=== PATIENT | female | born 1975 | race African-American/Black ===

== ENCOUNTER 2021-06-02 05:04 | Inpatient (IN) | payer MEDICAID ==
[2021-06-01 19:00] VITALS: BP 177/98
[~2021-06-02] VITALS: Ht 152.4 cm; Wt 91.0 kg
[2021-06-02 06:27] LABS: CALCIUM 8.8 mg/dL (8.5-10.1); GFR 71.6
[2021-06-02] MEDS ORDERED: MORPHINE SULFATE 2 MG/ML INJ. IVP ONE (06:30)
[2021-06-02 06:31] LABS: BACTERIA,URINE 0 /HPF (0-FEW); RBC,URINE TNTC /HPF (0-2); WBC,URINE FIELD OBSCURED /HPF (0-4)
[2021-06-02 06:33] LABS: ALBUMIN 3.6 g/dL (3.4-5.0); ALBUMIN/GLOBULIN RATIO 0.9 (1.0-1.7); TOTAL BILIRUBIN 0.3 mg/dL (0.2-1.0); TOTAL PROTEIN 7.5 g/dL (6.4-8.2)
--- NOTE | 2021-06-02 06:34 | PHYS DOC ---
Past Medical History Past Surgical History: Additional Past Surgical Histo: hernia repair Smoking Status: Never Smoker Alcohol Use: None General Adult EDM: Chief Complaint: BLOOD IN URINE HPI: HPI: Patient is a 46 year old female presents to the ER with hematuria and left- sided flank pain. Suprapubic pain that started approximately 2 days ago. Patient is visiting family from [place]. Patient states that she was seen in the ER yesterday and was sent to this ER stating that they did not equipment to evaluate her yesterday. Patient states that the bleeding initially started spotting but currently has full bright red blood. Patient has not had symptoms like this previously. Denies any fevers or chills. Denies any nausea or vomiting. Review of Systems: Review of Systems: Constitutional: Denies fever or chills. [] Eyes: Denies change in visual acuity. [] HENT: Denies nasal congestion or sore throat. [] Respiratory: Denies cough or shortness of breath. [] Cardiovascular: Denies chest pain or edema. [] GI: Denies abdominal pain, nausea, vomiting, bloody stools or diarrhea. [] : Flank pain dysuria hematuria Musculoskeletal: Denies back pain or joint pain. [] Integument: Denies rash. [] Neurologic: Denies headache, focal weakness or sensory changes. [] Endocrine: Denies polyuria or polydipsia. [] Lymphatic: Denies swollen glands. [] Psychiatric: Denies depression or anxiety. [] Heart Score: C/O Chest Pain: No Risk Factors: Risk Factors: DM, Current or recent (<one month) smoker, HTN, HLP, family history of CAD, obesity. Risk Scores: Score 0 - 3: 2.5% MACE over next 6 weeks - Discharge Home Score 4 - 6: 20.3% MACE over next 6 weeks - Admit for Clinical Observation Score 7 - 10: 72.7% MACE over next 6 weeks - Early Invasive Strategies Current Medications: Current Medications Medications (Trade) Dose Ordered Sig/Aimee Start Time Stop Time Status Last Admin Dose Admin Morphine Sulfate (Morphine Sulfate) 2 mg 1X ONCE 06/02/21 06:30 06/02/21 06:31 DC 06/02/21 06:26 2 MG Allergies: Allergies: Allergies Coded Allergies Type Severity Reaction Last Updated Verified azithromycin Allergy Intermediate 06/02/21 Yes ketorolac Allergy Intermediate 06/02/21 Yes Physical Exam: PE: Constitutional: Appears uncomfortable well developed, well nourished, no acute distress, non-toxic appearance. [] HENT: Normocephalic, atraumatic, bilateral external ears normal, oropharynx m oist, no oral exudates, nose normal. [] Eyes: PERRLA, EOMI, conjunctiva normal, no discharge. [] Neck: Normal range of motion, no tenderness, supple, no stridor. [] Cardiovascular:Heart rate regular rhythm, no murmur [] Lungs & Thorax: Bilateral breath sounds clear to auscultation [] Abdomen: Bowel sounds normal, soft, no tenderness, no masses, no pulsatile masses. [] Skin: Warm, dry, no erythema, no rash. [] Back: No tenderness, left-sided CVA tenderness. [] Extremities: No tenderness, no cyanosis, no clubbing, ROM intact, no edema. [] Neurologic: Alert and oriented X 3, normal motor function, normal sensory function, no focal deficits noted. [] Psychologic: Affect normal, judgement normal, mood normal. [] Current Patient Data: Labs: Laboratory Tests Test 06/02/21 05:53 Urine Collection Type Unknown Urine Color (Auto) Red Urine Turbidity Bloody Urine pH (Auto) (<5.0-8.0) Urine Specific [place] (1.000-1.030) Urine Protein (Auto) mg/dL (Negative) Urine Glucose (Auto)(UA) mg/dL (Negative) Urine Ketones (Auto) mg/dL (Negative) Urine Blood (Auto) (Negative) Urine Nitrite (Negative) Urine Bilirubin (Auto) (Negative) Urine Urobilinogen (Auto) mg/dL (Normal) Urine Leukocyte Esterase (Auto) (Negative) Urine RBC Tntc /HPF (0-2) Urine WBC Field obscured /HPF (0-4) Urine Squamous Epithelial Cells Few /LPF Urine Bacteria 0 /HPF (0-FEW) Vital Signs: Vital Signs Date Time Temp Pulse Resp B/P (MAP) Pulse Ox O2 Delivery O2 Flow Rate FiO2 06/02/21 06:26 18 06/02/21 05:36 98.6 77 150/103 (119) 100 Room Air 98.6 EKG: EKG: [] Radiology/Procedures: Radiology/Procedures: []IMPRESSION: 1. No renal tract calculus. No hydronephrosis or hydroureter. 2. Trace free pelvic fluid is likely physiologic. 3. 3 mm right lower lobe lung nodules. Per Fleischner Society guidelines for incidentally found solid nodules measuring less than 6 mm, no follow-up is nece ssary if patient is considered at low risk for lung cancer. If patient is considered to be at high risk, such as with history of smoking, then CT follow- up in about 12 months can be considered. Course & Med Decision Making: Course & Med Decision Making Pertinent Labs and Imaging studies reviewed. (See chart for details) [] Discussed case with hospitalist. Patient accepted patient will be seen by urology and have a CBI Dragon Disclaimer: Sophia Disclaimer: This electronic medical record was generated, in whole or in part, using a voice recognition dictation system. Departure Departure Referrals: UNKNOWN PCP NAME (PCP) JEAN KUMAR DO Jun 02, 2021 06:34
--- NOTE | 2021-06-02 06:41 | RAD ---
EXAM: CT Abdomen and Pelvis without IV contrast CLINICAL HISTORY: left flank pain COMPARISON: none TECHNIQUE: Helical CT of the abdomen and pelvis without intravenous contrast. Axial, coronal and sagi ttal reformatted images were generated. PQRS compliance statement - One or more of the following individualized dose reduction techniques wer e utilized for this study: 1. Automated exposure control 2. Adjustment of the mA and/or kV according to patient size 3. Use of iterative reconstruction technique FINDINGS: Lack of intravenous contrast limits evaluation of solid organs, vasculature, and lymph nodes. Lower chest: Nodular opacities right lower lobe measures 3-4 mm. Abdomen and Pelvis: Cholecystectomy clips are seen. No biliary duct dilatation. Pancreas, spleen, adrenal glands are unre markable. Liver is unremarkable. No focal renal lesion. No hydronephrosis. No hydroureter. Bladder is grossly unremarkable. Moderate colonic stool content is seen. No small or large bowel dilatation. No bowel obstruction. Tracy endix is normal. Trace pelvic ascites. No abdominal or pelvic lymphadenopathy. Bones: No aggressive osseous lesion is seen. IMPRESSION: 1. No renal tract calculus. No hydronephrosis or hydroureter. 2. Trace free pelvic fluid is likely physiologic. 3. 3 mm right lower lobe lung nodules. Per Fleischner Society guidelines for incidentally found nohemi d nodules measuring less than 6 mm, no follow-up is necessary if patient is considered at low risk fo r lung cancer. If patient is considered to be at high risk, such as with history of smoking, then CT follow-up in about 12 months can be considered. Electronically signed by: Ata Godwin MD (06/02/2021 6:39 AM) J[facility]GE
[2021-06-02 06:44] LABS: BASO # 0.1 x10^3/uL (0.0-0.2); BASO % 1 % (0-3); EOS # 0.2 x10^3/uL (0.0-0.7); EOS % 3 % (0-3); HEMATOCRIT 35.9 % (36.0-47.0); HEMOGLOBIN 11.7 g/dL (12.0-15.5); LYMPH # 2.9 x10^3/uL (1.0-4.8); LYMPH % 40 % (24-48); MEAN CORPUSCULAR HEMOGLOBIN 26 pg (25-35); MEAN CORPUSCULAR HGB CONC 33 g/dL (31-37); MEAN CORPUSCULAR VOLUME 79 fL (79-100); MONO # 0.7 x10^3/uL (0.0-1.1); MONO % 9 % (0-9); NEUT # 3.4 x10^3/uL (1.8-7.7); NEUT % 47 % (31-73); PLATELET COUNT 368 x10^3/uL (140-400); RED BLOOD COUNT 4.54 x10^6/uL (3.50-5.40); WHITE BLOOD COUNT 7.2 x10^3/uL (4.0-11.0)
[2021-06-02] MEDS ORDERED: cefTRIAXone IV Push 1 GM VIAL. IVP ONE (08:30)
[2021-06-02] MEDS ORDERED: IV NORMAL SALINE 1000ML BAG 1,000 ML IV ONE (08:30)
--- NOTE | 2021-06-02 10:47 | PDOC2 ---
UROLOGY CONSULT Date of Service DATE: 06/02/21 TIME: 10:45 Reason for Consult Reason for Consult: hematuria Identification/Chief Complaint Chief Complaint blood in urine History of Present Illness Reason for Visit: 46yo female presented to ER for gross hematuria. Began two nights ago. Associated with dysuria, urgency, frequency. Also endorses lower abdominal and lower back pain with same timing onset. Has not seen any clots. CT a/p was unremarkable. UA difficult to interpret due to amount of blood. No hx kidney stones, recurrent UTIs, anticoagulation, or trauma. Denies fevers, difficulty voiding, chest pain, shortness of breath. No prior history of gross hematuria. Pt is from [place], visiting family here, and planning to return on 06/05. Past Medical History Cardiovascular: No pertinent hx Pulmonary: No pertinent hx Renal/: No pertinent hx Past Surgical History Past Surgical History: Family History Family History: No Significant Social History Quit (previous smoker) Current Medications Current Medications Current Medications Ceftriaxone Sodium (Rocephin) 1 gm 1X ONCE IVP Last administered on 06/02/21at 08:39; Start 06/02/21 at 08:30; Stop 06/02/21 at 08:31; Status DC Lorazepam (Ativan Inj) 1 mg 1X ONCE IVP Last administered on 06/02/21at 08:39; Start 06/02/21 at 08:30; Stop 06/02/21 at 08:31; Status DC Morphine Sulfate (Morphine Sulfate) 2 mg 1X ONCE IVP Last administered on 06/02/21at 06:26; Start 06/02/21 at 06:30; Stop 06/02/21 at 06:31; Status DC Sodium Chloride 1,000 ml @ 1,000 mls/hr 1X ONCE IV Last administered on 06/02/21at 08:39; Start 06/02/21 at 08:30; Stop 06/02/21 at 09:29; Status DC Allergies Allergies: Coded Allergies: azithromycin (Verified Allergy, Intermediate, 06/02/21) ketorolac (Verified Allergy, Intermediate, 06/02/21) ROS Review Of Systems: CONSTITUTIONAL: No fever or chills EYES: No recent changes SKIN: No rash or itching CARDIOVASCULAR: No chest pain, syncope, palpitations, or edema RESPIRATORY: No SOB or cough GASTROINTESTINAL: No nausea, vomiting or abdominal pain NEUROLOGICAL: No headaches or weakness ENDOCRINE: No cold or heat intolerance GENITOURINARY: No urgency or frequency of urination MUSCULOSKELETAL: No back pain or joint pain LYMPHATICS: No enlarged lymph nodes PSYCHIATRIC: No anxiety or depression Physical Exam Physical Exam: General: Pleasant, no acute distress, well groomed Eyes: conjunctiva anicteric, eyes full range of motion ENT: moist oral mucosa, normal dentition Neck: Trachea midline, no masses Respiratory: unlabored breathing, not using accessory muscles, no crackles or wheezes Cardiovascular: Regular rate and rhythm, no peripheral edema Abdomen: lower abdomen tender, nondistended Skin: no rashes or skin lesions on visualized skin Psych: normal mood, affect. Alert and oriented x 3. Vitals VITALS Vital Signs Date Time Temp Pulse Resp B/P (MAP) Pulse Ox O2 Delivery O2 Flow Rate FiO2 06/02/21 07:04 66 15 163/94 (117) 97 Room Air 06/02/21 05:36 98.6 98.6 Labs Labs Laboratory Tests Test 06/02/21 05:53 White Blood Count 7.2 x10^3/uL (4.0-11.0) Red Blood Count 4.54 x10^6/uL (3.50-5.40) Hemoglobin 11.7 g/dL (12.0-15.5) Hematocrit 35.9 % (36.0-47.0) Mean Corpuscular Volume 79 fL (79-100) Mean Corpuscular Hemoglobin 26 pg (25-35) Mean Corpuscular Hemoglobin Concent 33 g/dL (31-37) Red Cell Distribution Width 17.0 % (11.5-14.5) Platelet Count 368 x10^3/uL (140-400) Neutrophils (%) (Auto) 47 % (31-73) Lymphocytes (%) (Auto) 40 % (24-48) Monocytes (%) (Auto) 9 % (0-9) Eosinophils (%) (Auto) 3 % (0-3) Basophils (%) (Auto) 1 % (0-3) Neutrophils # (Auto) 3.4 x10^3/uL (1.8-7.7) Lymphocytes # (Auto) 2.9 x10^3/uL (1.0-4.8) Monocytes # (Auto) 0.7 x10^3/uL (0.0-1.1) Eosinophils # (Auto) 0.2 x10^3/uL (0.0-0.7) Basophils # (Auto) 0.1 x10^3/uL (0.0-0.2) Urine Collection Type Unknown Urine Color (Auto) Red Urine Turbidity Bloody Urine pH (Auto) (<5.0-8.0) Urine Specific [place] (1.000-1.030) Urine Protein (Auto) mg/dL (Negative) Urine Glucose (Auto)(UA) mg/dL (Negative) Urine Ketones (Auto) mg/dL (Negative) Urine Blood (Auto) (Negative) Urine Nitrite (Negative) Urine Bilirubin (Auto) (Negative) Urine Urobilinogen (Auto) mg/dL (Normal) Urine Leukocyte Esterase (Auto) (Negative) Urine RBC Tntc /HPF (0-2) Urine WBC Field obscured /HPF (0-4) Urine Squamous Epithelial Cells Few /LPF Urine Bacteria 0 /HPF (0-FEW) Sodium Level 137 mmol/L (136-145) Potassium Level 4.0 mmol/L (3.5-5.1) Chloride Level 104 mmol/L (98-107) Carbon Dioxide Level 23 mmol/L (21-32) Anion Gap 10 (6-14) Blood Urea Nitrogen 15 mg/dL (7-20) Creatinine 1.0 mg/dL (0.6-1.0) Estimated GFR (Cockcroft-Gault) 71.6 BUN/Creatinine Ratio 15 (6-20) Glucose Level 100 mg/dL (70-99) Calcium Level 8.8 mg/dL (8.5-10.1) Total Bilirubin 0.3 mg/dL (0.2-1.0) Aspartate Amino Transf (AST/SGOT) 10 U/L (15-37) Alanine Aminotransferase (ALT/SGPT) 9 U/L (14-59) Alkaline Phosphatase 68 U/L (46-116) Total Protein 7.5 g/dL (6.4-8.2) Albumin 3.6 g/dL (3.4-5.0) Albumin/Globulin Ratio 0.9 (1.0-1.7) Laboratory Tests Test 06/02/21 05:53 White Blood Count 7.2 x10^3/uL (4.0-11.0) Red Blood Count 4.54 x10^6/uL (3.50-5.40) Hemoglobin 11.7 g/dL (12.0-15.5) Hematocrit 35.9 % (36.0-47.0) Mean Corpuscular Volume 79 fL (79-100) Mean Corpuscular Hemoglobin 26 pg (25-35) Mean Corpuscular Hemoglobin Concent 33 g/dL (31-37) Red Cell Distribution Width 17.0 % (11.5-14.5) Platelet Count 368 x10^3/uL (140-400) Neutrophils (%) (Auto) 47 % (31-73) Lymphocytes (%) (Auto) 40 % (24-48) Monocytes (%) (Auto) 9 % (0-9) Eosinophils (%) (Auto) 3 % (0-3) Basophils (%) (Auto) 1 % (0-3) Neutrophils # (Auto) 3.4 x10^3/uL (1.8-7.7) Lymphocytes # (Auto) 2.9 x10^3/uL (1.0-4.8) Monocytes # (Auto) 0.7 x10^3/uL (0.0-1.1) Eosinophils # (Auto) 0.2 x10^3/uL (0.0-0.7) Basophils # (Auto) 0.1 x10^3/uL (0.0-0.2) Urine Collection Type Unknown Urine Color (Auto) Red Urine Turbidity Bloody Urine pH (Auto) (<5.0-8.0) Urine Specific [place] (1.000-1.030) Urine Protein (Auto) mg/dL (Negative) Urine Glucose (Auto)(UA) mg/dL (Negative) Urine Ketones (Auto) mg/dL (Negative) Urine Blood (Auto) (Negative) Urine Nitrite (Negative) Urine Bilirubin (Auto) (Negative) Urine Urobilinogen (Auto) mg/dL (Normal) Urine Leukocyte Esterase (Auto) (Negative) Urine RBC Tntc /HPF (0-2) Urine WBC Field obscured /HPF (0-4) Urine Squamous Epithelial Cells Few /LPF Urine Bacteria 0 /HPF (0-FEW) Sodium Level 137 mmol/L (136-145) Potassium Level 4.0 mmol/L (3.5-5.1) Chloride Level 104 mmol/L (98-107) Carbon Dioxide Level 23 mmol/L (21-32) Anion Gap 10 (6-14) Blood Urea Nitrogen 15 mg/dL (7-20) Creatinine 1.0 mg/dL (0.6-1.0) Estimated GFR (Cockcroft-Gault) 71.6 BUN/Creatinine Ratio 15 (6-20) Glucose Level 100 mg/dL (70-99) Calcium Level 8.8 mg/dL (8.5-10.1) Total Bilirubin 0.3 mg/dL (0.2-1.0) Aspartate Amino Transf (AST/SGOT) 10 U/L (15-37) Alanine Aminotransferase (ALT/SGPT) 9 U/L (14-59) Alkaline Phosphatase 68 U/L (46-116) Total Protein 7.5 g/dL (6.4-8.2) Albumin 3.6 g/dL (3.4-5.0) Albumin/Globulin Ratio 0.9 (1.0-1.7) Images Images FINDINGS: Lack of intravenous contrast limits evaluation of solid organs, vasculature, and lymph nodes. Lower chest: Nodular opacities right lower lobe measures 3-4 mm. Abdomen and Pelvis: Cholecystectomy clips are seen. No biliary duct dilatation. Pancreas, spleen, adrenal glands are unremarkable. Liver is unremarkable. No focal renal lesion. No hydronephrosis. No hydroureter. Bladder is grossly unremarkable. Moderate colonic stool content is seen. No small or large bowel dilatation. No bowel obstruction. Appendix is normal. Trace pelvic ascites. No abdominal or pelvic lymphadenopathy. Bones: No aggressive osseous lesion is seen. IMPRESSION: 1. No renal tract calculus. No hydronephrosis or hydroureter. 2. Trace free pelvic fluid is likely physiologic. 3. 3 mm right lower lobe lung nodules. Per Fleischner Society guidelines for incidentally found solid nodules measuring less than 6 mm, no follow-up is necessary if patient is considered at low risk for lung cancer. If patient is considered to be at high risk, such as with history of smoking, then CT follow- up in about 12 months can be considered. Electronically signed by: Ata Godwin MD (06/02/2021 6:39 AM) [facility] Assessment/Plan Assessment/Plan Gross Hematuria PVR 19mL. No clots noted. UA obscured by blood. Most likely due to UTI. CT a/p unremarkable. Continue empiric abx, IVF. F/u urine culture. Also recommend pt f/u with urologist in [place] when she returns to have cystoscopy outpatient. She voiced understanding. Will follow. Anticipate pt able to d/c tomorrow. ALMA GARCIA Jun 02, 2021 10:47
[2021-06-02 11:00] VITALS: BP 147/88
[2021-06-02] MEDS: MORPHINE SULFATE 2 MG/ML INJ. IVP PRN ×2 (13:43→22:10)
[2021-06-02] MEDS ORDERED: MORPHINE SULFATE 2 MG/ML INJ. IVP PRN (14:15)
[2021-06-02] MEDS ORDERED: oxyCODONE/APAP 5/325 1 TAB TABLET PO PRN ×2 (14:15)
[2021-06-02] MEDS ORDERED: DEXTROSE 50% 25 GM / 50ML DISP.SYRIN. IV PRN (14:15)
[2021-06-02] MEDS ORDERED: MORPHINE SULFATE 2 MG/ML INJ. IV PRN (14:15)
[2021-06-02] MEDS ORDERED: diphenhydrAMINE 50 MG/ML VIAL IVP PRN (14:15)
[2021-06-02] MEDS ORDERED: DOCUSATE SODIUM 100 MG CAPSULE. PO PRN (14:15)
[2021-06-02] MEDS ORDERED: ONDANSETRON PF 4 MG/2 ML VIAL. IVP PRN (14:15)
[2021-06-02] MEDS ORDERED: SENNOSIDES 8.6 MG TABLET PO PRN (14:15)
[2021-06-02] MEDS ORDERED: ZOLPIDEM 5 MG TABLET. PO PRN (14:15)
[2021-06-02] MEDS ORDERED: diphenhydrAMINE HCL 25 MG CAPSULE PO PRN ×2 (14:15)
[2021-06-02] MEDS ORDERED: ACETAMINOPHEN 325 MG TABLET. PO PRN (14:15)
[2021-06-02] MEDS ORDERED: PROCHLORPERAZINE 10 MG/2 ML VIAL. IV PRN (14:15)
--- NOTE | 2021-06-02 14:15 | PDOC1 ---
History and Physical Date of Service: DOS: DATE: 06/02/21 TIME: 14:13 Chief Complaint: Chief Complain: Blood in the urine History of Present Illness: HPI: 46 year old female presents to the ER with hematuria and left-sided flank pain. Suprapubic pain that started approximately 2 days ago. Patient is visiting family from [place]. Patient states that she was seen in the ER yesterday and was sent to this ER stating that they did not equipment to evaluate her yesterday. Patient states that the bleeding initially started spotting but currently has full bright red blood. Patient has not had symptoms like this previously. Denies any fevers or chills. Denies any nausea or vomiting. Past Medical/Surgical History: PMH/PSH: Past Surgical History: Additional Past Surgical Histo: hernia repair Smoking Status: Never Smoker Alcohol Use: None Allergies: Allergies: Coded Allergies: azithromycin (Verified Allergy, Intermediate, 06/02/21) ketorolac (Verified Allergy, Intermediate, 06/02/21) Current Medications: Current Medications Current Medications Morphine Sulfate (Morphine Sulfate) 2 mg 1X ONCE IVP Last administered on 06/02/21at 06:26; Start 06/02/21 at 06:30; Stop 06/02/21 at 06:31; Status DC Lorazepam (Ativan Inj) 1 mg 1X ONCE IVP Last administered on 06/02/21at 08:39; Start 06/02/21 at 08:30; Stop 06/02/21 at 08:31; Status DC Ceftriaxone Sodium (Rocephin) 1 gm 1X ONCE IVP Last administered on 06/02/21at 08:39; Start 06/02/21 at 08:30; Stop 06/02/21 at 08:31; Status DC Sodium Chloride 1,000 ml @ 1,000 mls/hr 1X ONCE IV Last administered on 06/02/21at 08:39; Start 06/02/21 at 08:30; Stop 06/02/21 at 09:29; Status DC Morphine Sulfate (Morphine Sulfate) 2 mg PRN Q4HRS PRN IVP MODERATE TO SEVERE PAIN Last administered on 06/02/21at 13:43; Start 06/02/21 at 13:30 ROS: Review of Systems Review of System REVIEW OF SYSTEMS: GENERAL: Denies weakness SKIN: No bruising, hair changes or rashes. EYES: No blurred, double or loss of vision. NOSE AND THROAT: No history of nosebleeds, hoarseness or sore throat. HEART: No history of palpitations, chest pain or shortness of breath on exertion. LUNGS: Denies cough, hemoptysis, wheezing or shortness of breath. GASTROINTESTINAL: Denies changes in appetite, nausea, vomiting, diarrhea or constipation. GENITOURINARY: No history of frequency, urgency, hesitancy or nocturia. NEUROLOGIC: Denies history of numbness, tingling, or tremor. PSYCHIATRIC: No history of panic, anxiety or depression. ENDOCRINE: No history of heat or cold intolerance, polyuria or polydipsia. EXTREMITIES: Denies joint pain, pain on walking or stiffness. Physical Exam: Vital Signs: Vital Signs Date Time Temp Pulse Resp B/P (MAP) Pulse Ox O2 Delivery O2 Flow Rate FiO2 06/02/21 13:43 20 Room Air 06/02/21 11:00 97.3 78 147/88 (107) 97 97.3 Physcial Exam: GEN: No apparent distress. Alert and oriented HEENT: Normal cephalic, atraumatic, external auditory canals are patent EYES: Extraocular muscles are intact, pupil are equally round and reactive to light and accommodation MUSCULOSKELETAL: Well developed , well nourished, good range of motion ENDOCRINE: No thyromegaly was palpated LYMPHATICS: No cervical chain or axillary nodes were noted HEMATOPOIETIC: No bruising NECK: Supple, no JVD, no thyromegaly was noted LUNGS: Clear to auscultation in all lung griffith without rhonchi or wheezing HEART: RRR, S!, S2 present. Peripheral pulses intact, no obvious murmurs noted ABDOMEN: Soft, nontender. Positive bowel sounds, no organomegaly, normal bowel sounds EXTREMITIES: Without clubbing, cyanosis, or edema. Pedal pulses intact. Negative Homans sign NEUROLOGIC: Normal speech and tone. A&O x 3, moves all extremities, no obvious focal deficits PSYCHIATRIC: Normal affect, normal mood. Stable SKIN: No ulcerations or rashes, good skin turgor, no jaundice VASCULAR: Good capillary refill, neurovascular bundle appears to be intact Labs: Labs: Laboratory Tests Test 06/02/21 05:53 White Blood Count 7.2 x10^3/uL (4.0-11.0) Red Blood Count 4.54 x10^6/uL (3.50-5.40) Hemoglobin 11.7 g/dL (12.0-15.5) Hematocrit 35.9 % (36.0-47.0) Mean Corpuscular Volume 79 fL (79-100) Mean Corpuscular Hemoglobin 26 pg (25-35) Mean Corpuscular Hemoglobin Concent 33 g/dL (31-37) Red Cell Distribution Width 17.0 % (11.5-14.5) Platelet Count 368 x10^3/uL (140-400) Neutrophils (%) (Auto) 47 % (31-73) Lymphocytes (%) (Auto) 40 % (24-48) Monocytes (%) (Auto) 9 % (0-9) Eosinophils (%) (Auto) 3 % (0-3) Basophils (%) (Auto) 1 % (0-3) Neutrophils # (Auto) 3.4 x10^3/uL (1.8-7.7) Lymphocytes # (Auto) 2.9 x10^3/uL (1.0-4.8) Monocytes # (Auto) 0.7 x10^3/uL (0.0-1.1) Eosinophils # (Auto) 0.2 x10^3/uL (0.0-0.7) Basophils # (Auto) 0.1 x10^3/uL (0.0-0.2) Urine Collection Type Unknown Urine Color (Auto) Red Urine Turbidity Bloody Urine pH (Auto) (<5.0-8.0) Urine Specific [place] (1.000-1.030) Urine Protein (Auto) mg/dL (Negative) Urine Glucose (Auto)(UA) mg/dL (Negative) Urine Ketones (Auto) mg/dL (Negative) Urine Blood (Auto) (Negative) Urine Nitrite (Negative) Urine Bilirubin (Auto) (Negative) Urine Urobilinogen (Auto) mg/dL (Normal) Urine Leukocyte Esterase (Auto) (Negative) Urine RBC Tntc /HPF (0-2) Urine WBC Field obscured /HPF (0-4) Urine Squamous Epithelial Cells Few /LPF Urine Bacteria 0 /HPF (0-FEW) Sodium Level 137 mmol/L (136-145) Potassium Level 4.0 mmol/L (3.5-5.1) Chloride Level 104 mmol/L (98-107) Carbon Dioxide Level 23 mmol/L (21-32) Anion Gap 10 (6-14) Blood Urea Nitrogen 15 mg/dL (7-20) Creatinine 1.0 mg/dL (0.6-1.0) Estimated GFR (Cockcroft-Gault) 71.6 BUN/Creatinine Ratio 15 (6-20) Glucose Level 100 mg/dL (70-99) Calcium Level 8.8 mg/dL (8.5-10.1) Total Bilirubin 0.3 mg/dL (0.2-1.0) Aspartate Amino Transf (AST/SGOT) 10 U/L (15-37) Alanine Aminotransferase (ALT/SGPT) 9 U/L (14-59) Alkaline Phosphatase 68 U/L (46-116) Total Protein 7.5 g/dL (6.4-8.2) Albumin 3.6 g/dL (3.4-5.0) Albumin/Globulin Ratio 0.9 (1.0-1.7) Laboratory Tests Test 06/02/21 05:53 White Blood Count 7.2 x10^3/uL (4.0-11.0) Red Blood Count 4.54 x10^6/uL (3.50-5.40) Hemoglobin 11.7 g/dL (12.0-15.5) Hematocrit 35.9 % (36.0-47.0) Mean Corpuscular Volume 79 fL (79-100) Mean Corpuscular Hemoglobin 26 pg (25-35) Mean Corpuscular Hemoglobin Concent 33 g/dL (31-37) Red Cell Distribution Width 17.0 % (11.5-14.5) Platelet Count 368 x10^3/uL (140-400) Neutrophils (%) (Auto) 47 % (31-73) Lymphocytes (%) (Auto) 40 % (24-48) Monocytes (%) (Auto) 9 % (0-9) Eosinophils (%) (Auto) 3 % (0-3) Basophils (%) (Auto) 1 % (0-3) Neutrophils # (Auto) 3.4 x10^3/uL (1.8-7.7) Lymphocytes # (Auto) 2.9 x10^3/uL (1.0-4.8) Monocytes # (Auto) 0.7 x10^3/uL (0.0-1.1) Eosinophils # (Auto) 0.2 x10^3/uL (0.0-0.7) Basophils # (Auto) 0.1 x10^3/uL (0.0-0.2) Urine Collection Type Unknown Urine Color (Auto) Red Urine Turbidity Bloody Urine pH (Auto) (<5.0-8.0) Urine Specific [place] (1.000-1.030) Urine Protein (Auto) mg/dL (Negative) Urine Glucose (Auto)(UA) mg/dL (Negative) Urine Ketones (Auto) mg/dL (Negative) Urine Blood (Auto) (Negative) Urine Nitrite (Negative) Urine Bilirubin (Auto) (Negative) Urine Urobilinogen (Auto) mg/dL (Normal) Urine Leukocyte Esterase (Auto) (Negative) Urine RBC Tntc /HPF (0-2) Urine WBC Field obscured /HPF (0-4) Urine Squamous Epithelial Cells Few /LPF Urine Bacteria 0 /HPF (0-FEW) Sodium Level 137 mmol/L (136-145) Potassium Level 4.0 mmol/L (3.5-5.1) Chloride Level 104 mmol/L (98-107) Carbon Dioxide Level 23 mmol/L (21-32) Anion Gap 10 (6-14) Blood Urea Nitrogen 15 mg/dL (7-20) Creatinine 1.0 mg/dL (0.6-1.0) Estimated GFR (Cockcroft-Gault) 71.6 BUN/Creatinine Ratio 15 (6-20) Glucose Level 100 mg/dL (70-99) Calcium Level 8.8 mg/dL (8.5-10.1) Total Bilirubin 0.3 mg/dL (0.2-1.0) Aspartate Amino Transf (AST/SGOT) 10 U/L (15-37) Alanine Aminotransferase (ALT/SGPT) 9 U/L (14-59) Alkaline Phosphatase 68 U/L (46-116) Total Protein 7.5 g/dL (6.4-8.2) Albumin 3.6 g/dL (3.4-5.0) Albumin/Globulin Ratio 0.9 (1.0-1.7) Images: Images PROCEDURE: CT ABDOMEN PELVIS WO CONTRAST EXAM: CT Abdomen and Pelvis without IV contrast CLINICAL HISTORY: left flank pain COMPARISON: none TECHNIQUE: Helical CT of the abdomen and pelvis without intravenous contrast. Axial, coronal and sagittal reformatted images were generated. PQRS compliance statement - One or more of the following individualized dose reduction techniques were utilized for this study: 1. Automated exposure control 2. Adjustment of the mA and/or kV according to patient size 3. Use of iterative reconstruction technique FINDINGS: Lack of intravenous contrast limits evaluation of solid organs, vasculature, and lymph nodes. Lower chest: Nodular opacities right lower lobe measures 3-4 mm. Abdomen and Pelvis: Cholecystectomy clips are seen. No biliary duct dilatation. Pancreas, spleen, a drenal glands are unremarkable. Liver is unremarkable. No focal renal lesion. No hydronephrosis. No hydroureter. Bladder is grossly unremarkable. Moderate colonic stool content is seen. No small or large bowel dilatation. No bowel obstruction. Appendix is normal. Trace pelvic ascites. No abdominal or pelvic lymphadenopathy. Bones: No aggressive osseous lesion is seen. IMPRESSION: 1. No renal tract calculus. No hydronephrosis or hydroureter. 2. Trace free pelvic fluid is likely physiologic. 3. 3 mm right lower lobe lung nodules. Per Fleischner Society guidelines for incidentally found solid nodules measuring less than 6 mm, no follow-up is necessary if patient is considered at low risk for lung cancer. If patient is considered to be at high risk, such as with history of smoking, then CT follow- up in about 12 months can be considered. Assessment/Plan Assessment/Plan Hematuria Incidental finding of right lower lobe pulmonary nodules less than 6 mm, follow- up of CT in about 12 months can be done as an outpatient Justifications for Admission Other Justification CARLOS BELLE MD Jun 02, 2021 14:14
[2021-06-02 15:00] VITALS: BP 137/84
[2021-06-02 19:00] VITALS: BP 161/92
[2021-06-02] MEDS: IV NORMAL SALINE 1000ML BAG 1,000 ML IV SCH (20:15)
[2021-06-02 23:15] VITALS: BP 181/112
[2021-06-03] MEDS: LORazepam 0.5 MG TABLET PO PRN ×3 (02:16→22:26)
[2021-06-03] MEDS: MORPHINE SULFATE 2 MG/ML INJ. IVP PRN ×6 (02:21→22:31)
[2021-06-03 03:19] VITALS: BP 123/75
[2021-06-03] MEDS: IV NORMAL SALINE 1000ML BAG 1,000 ML IV SCH ×3 (05:49→11:41)
[2021-06-03 07:00] VITALS: BP 163/103
[2021-06-03] MEDS: cefTRIAXone IV Push 1 GM VIAL. IVP SCH (07:14)
[2021-06-03 08:01] LABS: BASO % 1 % (0-3); EOS # 0.2 x10^3/uL (0.0-0.7); EOS % 4 % (0-3); HEMATOCRIT 36.3 % (36.0-47.0); HEMOGLOBIN 11.5 g/dL (12.0-15.5); LYMPH # 2.2 x10^3/uL (1.0-4.8); LYMPH % 47 % (24-48); MEAN CORPUSCULAR HEMOGLOBIN 25 pg (25-35); MEAN CORPUSCULAR HGB CONC 32 g/dL (31-37); MEAN CORPUSCULAR VOLUME 80 fL (79-100); MONO # 0.5 x10^3/uL (0.0-1.1); MONO % 10 % (0-9); NEUT # 1.8 x10^3/uL (1.8-7.7); NEUT % 38 % (31-73); PLATELET COUNT 290 x10^3/uL (140-400); RED BLOOD COUNT 4.53 x10^6/uL (3.50-5.40); RED CELL DISTRIBUTION WIDTH 16.7 % (11.5-14.5); WHITE BLOOD COUNT 4.7 x10^3/uL (4.0-11.0)
[2021-06-03 08:33] LABS: ALBUMIN 3.2 g/dL (3.4-5.0); ALBUMIN/GLOBULIN RATIO 0.9 (1.0-1.7); CALCIUM 8.1 mg/dL (8.5-10.1); CREATININE 0.6 mg/dL (0.6-1.0); GFR 129.1; MAGNESIUM 1.7 mg/dL (1.8-2.4); POTASSIUM 3.7 mmol/L (3.5-5.1); TOTAL BILIRUBIN 0.5 mg/dL (0.2-1.0); TOTAL PROTEIN 6.7 g/dL (6.4-8.2)
[2021-06-03 11:00] VITALS: BP 126/65
[2021-06-03] MEDS ORDERED: MAGNESIUM SULFATE 2GM 50 ML IV ONE (11:00)
--- NOTE | 2021-06-03 11:19 | PDOC ---
[employer] PROGRESS NOTE Date of Service DOS: DATE: 06/03/21 TIME: 11:14 Chief Complaint Chief Complaint Hematuria -given her pain likely is hemorrhagic cystitis from UTI. We will follow up urine cultures antibiotics. Incidental finding of right lower lobe pulmonary nodules less than 6 mm, follow- up of CT in about 12 months can be done as an outpatient Suprapubic pain Constipation -we will give him magnesium citrate. History of Present Illness History of Present Illness 46 year old female presents to the ER with hematuria and left-sided flank pain. Suprapubic pain that started approximately 2 days ago. Patient is visiting family from [place]. Patient states that she was seen in the ER yesterday and was sent to this ER stating that they did not equipment to evaluate her yesterday. Patient states that the bleeding initially started spotting but currently has full bright red blood. Patient has not had symptoms like this previously. Denies any fevers or chills. Denies any nausea or vomiting. 06/03: CT abdomen pelvis with no obstructive uropathy or stones. She still notes she is having "thick blood". Urine culture pending she has been constipated has not had a bowel movement in 8 days. Vitals/I&O Vitals/I&O: Vital Signs Date Time Temp Pulse Resp B/P (MAP) Pulse Ox O2 Delivery O2 Flow Rate FiO2 06/03/21 07:10 20 Room Air 06/03/21 07:00 98.3 81 163/103 (123) 96 98.3 I & O 06/02/21 06/02/21 06/03/21 15:00 23:00 07:00 Intake Total 1000 ml 120 ml 660 ml Balance 1000 ml 120 ml 660 ml Physical Exam General: Alert, Oriented X3, Cooperative, moderate distress Heart: Regular rate, Normal S1, Normal S2 Lungs: Clear Abdomen: Normal bowel sounds, Other (Left lower quadrant and suprapubic pain on shallow palpation) Extremities: No clubbing, No cyanosis Skin: No rashes, No breakdown Labs Labs: Laboratory Tests Test 06/03/21 06:35 White Blood Count 4.7 x10^3/uL (4.0-11.0) Red Blood Count 4.53 x10^6/uL (3.50-5.40) Hemoglobin 11.5 g/dL (12.0-15.5) Hematocrit 36.3 % (36.0-47.0) Mean Corpuscular Volume 80 fL (79-100) Mean Corpuscular Hemoglobin 25 pg (25-35) Mean Corpuscular Hemoglobin Concent 32 g/dL (31-37) Red Cell Distribution Width 16.7 % (11.5-14.5) Platelet Count 290 x10^3/uL (140-400) Neutrophils (%) (Auto) 38 % (31-73) Lymphocytes (%) (Auto) 47 % (24-48) Monocytes (%) (Auto) 10 % (0-9) Eosinophils (%) (Auto) 4 % (0-3) Basophils (%) (Auto) 1 % (0-3) Neutrophils # (Auto) 1.8 x10^3/uL (1.8-7.7) Lymphocytes # (Auto) 2.2 x10^3/uL (1.0-4.8) Monocytes # (Auto) 0.5 x10^3/uL (0.0-1.1) Eosinophils # (Auto) 0.2 x10^3/uL (0.0-0.7) Basophils # (Auto) 0.0 x10^3/uL (0.0-0.2) Sodium Level 138 mmol/L (136-145) Potassium Level 3.7 mmol/L (3.5-5.1) Chloride Level 105 mmol/L (98-107) Carbon Dioxide Level 24 mmol/L (21-32) Anion Gap 9 (6-14) Blood Urea Nitrogen 7 mg/dL (7-20) Creatinine 0.6 mg/dL (0.6-1.0) Estimated GFR (Cockcroft-Gault) 129.1 BUN/Creatinine Ratio 12 (6-20) Glucose Level 88 mg/dL (70-99) Calcium Level 8.1 mg/dL (8.5-10.1) Phosphorus Level 3.0 mg/dL (2.6-4.7) Magnesium Level 1.7 mg/dL (1.8-2.4) Total Bilirubin 0.5 mg/dL (0.2-1.0) Aspartate Amino Transf (AST/SGOT) 11 U/L (15-37) Alanine Aminotransferase (ALT/SGPT) 16 U/L (14-59) Alkaline Phosphatase 55 U/L (46-116) Total Protein 6.7 g/dL (6.4-8.2) Albumin 3.2 g/dL (3.4-5.0) Albumin/Globulin Ratio 0.9 (1.0-1.7) Assessment and Plan Assessmemt and Plan Problems Medical Problems: (1) Hematuria Status: Acute Comment Review of Relevant I have reviewed the following items emily (where applicable) has been applied. Medications: Current Medications Medications (Trade) Dose Ordered Sig/Aimee Route PRN Reason Start Time Stop Time Status Last Admin Dose Admin Morphine Sulfate (Morphine Sulfate) 2 mg PRN Q4HRS PRN IVP MODERATE TO SEVERE PAIN 06/02/21 13:30 06/03/21 07:10 Ceftriaxone Sodium (Rocephin) 1 gm Q24H IVP 06/03/21 09:00 06/03/21 07:14 Sodium Chloride 1,000 ml @ 100 mls/hr Q10H IV 06/02/21 14:15 06/03/21 05:49 Lorazepam (Ativan) 0.5 mg PRN Q6HRS PRN PO ANXIETY / AGITATION 06/02/21 14:15 06/03/21 02:16 Oxycodone/ Acetaminophen (Percocet 5/325) 2 tab PRN Q4HRS PRN PO MODERATE PAIN, SEVERE PAIN 06/02/21 14:15 06/02/21 19:58 Diphenhydramine HCl (Benadryl) 25 mg PRN Q6HRS PRN IVP ITCHING 06/02/21 14:15 06/03/21 07:21 Diphenhydramine HCl (Benadryl) 25 mg PRN Q6HRS PRN PO ITCHING 06/02/21 14:15 06/02/21 22:10 Justifications for Admission Other Justification Hematuria TYRON FRITZ MD Jun 03, 2021 11:18
[2021-06-03] MEDS ORDERED: MAGNESIUM CITRATE 296 ML SOLUTION. PO ONE (11:30)
[2021-06-03] MEDS ORDERED: MAGNESIUM CITRATE 296 ML SOLUTION. PO PRN (11:30)
--- NOTE | 2021-06-03 12:48 | PN ---
PROGRESS NOTES Date of Service DATE: 06/03/21 TIME: 12:43 Subjective Subjective Pt reports continued hematuria abdominal pain hasn't had BM in a week hx of H. pylori, wasn't able to finish abx for this because they were stolen nausea today, cannot tolerate PO anxious about everything going on Objective Objective Vital Signs Date Time Temp Pulse Resp B/P (MAP) Pulse Ox O2 Delivery O2 Flow Rate FiO2 06/03/21 11:45 2 06/03/21 11:00 98.5 64 126/65 (85) 97 Room Air 98.5 Intake and Output 06/03/21 07:00 Intake Total 1780 ml Balance 1780 ml Intake Oral 780 ml IV Total 1000 ml Physical Exam Physical Exam NAD nonlabored respirations abd tender, nondistended urine in hat is red, no clots Diagnosis PROBLEM LIST Problems Medical Problems: (1) Hematuria Status: Acute Assessment Assessment Problems Medical Problems: (1) Hematuria Status: Acute Plan Plan of Care Emptying well. No clots noted. UA obscured by blood. Most likely due to UTI. CT a/p unremarkable. H/H stable Continue empiric abx, IVF. F/u urine culture. Also recommend pt f/u with urologist in [place] when she returns to have cystoscopy outpatient. She voiced understanding. Will follow. No further recs Comment Review of Relevant I have reviewed the following items emily (where applicable) has been applied. Labs Laboratory Tests Test 06/02/21 05:53 06/03/21 06:35 White Blood Count 7.2 x10^3/uL (4.0-11.0) 4.7 x10^3/uL (4.0-11.0) Red Blood Count 4.54 x10^6/uL (3.50-5.40) 4.53 x10^6/uL (3.50-5.40) Hemoglobin 11.7 g/dL (12.0-15.5) 11.5 g/dL (12.0-15.5) Hematocrit 35.9 % (36.0-47.0) 36.3 % (36.0-47.0) Mean Corpuscular Volume 79 fL (79-100) 80 fL (79-100) Mean Corpuscular Hemoglobin 26 pg (25-35) 25 pg (25-35) Mean Corpuscular Hemoglobin Concent 33 g/dL (31-37) 32 g/dL (31-37) Red Cell Distribution Width 17.0 % (11.5-14.5) 16.7 % (11.5-14.5) Platelet Count 368 x10^3/uL (140-400) 290 x10^3/uL (140-400) Neutrophils (%) (Auto) 47 % (31-73) 38 % (31-73) Lymphocytes (%) (Auto) 40 % (24-48) 47 % (24-48) Monocytes (%) (Auto) 9 % (0-9) 10 % (0-9) Eosinophils (%) (Auto) 3 % (0-3) 4 % (0-3) Basophils (%) (Auto) 1 % (0-3) 1 % (0-3) Neutrophils # (Auto) 3.4 x10^3/uL (1.8-7.7) 1.8 x10^3/uL (1.8-7.7) Lymphocytes # (Auto) 2.9 x10^3/uL (1.0-4.8) 2.2 x10^3/uL (1.0-4.8) Monocytes # (Auto) 0.7 x10^3/uL (0.0-1.1) 0.5 x10^3/uL (0.0-1.1) Eosinophils # (Auto) 0.2 x10^3/uL (0.0-0.7) 0.2 x10^3/uL (0.0-0.7) Basophils # (Auto) 0.1 x10^3/uL (0.0-0.2) 0.0 x10^3/uL (0.0-0.2) Urine Collection Type Unknown Urine Color (Auto) Red Urine Turbidity Bloody Urine pH (Auto) (<5.0-8.0) Urine Specific [place] (1.000-1.030) Urine Protein (Auto) mg/dL (Negative) Urine Glucose (Auto)(UA) mg/dL (Negative) Urine Ketones (Auto) mg/dL (Negative) Urine Blood (Auto) (Negative) Urine Nitrite (Negative) Urine Bilirubin (Auto) (Negative) Urine Urobilinogen (Auto) mg/dL (Normal) Urine Leukocyte Esterase (Auto) (Negative) Urine RBC Tntc /HPF (0-2) Urine WBC Field obscured /HPF (0-4) Urine Squamous Epithelial Cells Few /LPF Urine Bacteria 0 /HPF (0-FEW) Sodium Level 137 mmol/L (136-145) 138 mmol/L (136-145) Potassium Level 4.0 mmol/L (3.5-5.1) 3.7 mmol/L (3.5-5.1) Chloride Level 104 mmol/L (98-107) 105 mmol/L (98-107) Carbon Dioxide Level 23 mmol/L (21-32) 24 mmol/L (21-32) Anion Gap 10 (6-14) 9 (6-14) Blood Urea Nitrogen 15 mg/dL (7-20) 7 mg/dL (7-20) Creatinine 1.0 mg/dL (0.6-1.0) 0.6 mg/dL (0.6-1.0) Estimated GFR (Cockcroft-Gault) 71.6 129.1 BUN/Creatinine Ratio 15 (6-20) 12 (6-20) Glucose Level 100 mg/dL (70-99) 88 mg/dL (70-99) Calcium Level 8.8 mg/dL (8.5-10.1) 8.1 mg/dL (8.5-10.1) Total Bilirubin 0.3 mg/dL (0.2-1.0) 0.5 mg/dL (0.2-1.0) Aspartate Amino Transf (AST/SGOT) 10 U/L (15-37) 11 U/L (15-37) Alanine Aminotransferase (ALT/SGPT) 9 U/L (14-59) 16 U/L (14-59) Alkaline Phosphatase 68 U/L (46-116) 55 U/L (46-116) Total Protein 7.5 g/dL (6.4-8.2) 6.7 g/dL (6.4-8.2) Albumin 3.6 g/dL (3.4-5.0) 3.2 g/dL (3.4-5.0) Albumin/Globulin Ratio 0.9 (1.0-1.7) 0.9 (1.0-1.7) Phosphorus Level 3.0 mg/dL (2.6-4.7) Magnesium Level 1.7 mg/dL (1.8-2.4) Laboratory Tests Test 06/03/21 06:35 White Blood Count 4.7 x10^3/uL (4.0-11.0) Red Blood Count 4.53 x10^6/uL (3.50-5.40) Hemoglobin 11.5 g/dL (12.0-15.5) Hematocrit 36.3 % (36.0-47.0) Mean Corpuscular Volume 80 fL (79-100) Mean Corpuscular Hemoglobin 25 pg (25-35) Mean Corpuscular Hemoglobin Concent 32 g/dL (31-37) Red Cell Distribution Width 16.7 % (11.5-14.5) Platelet Count 290 x10^3/uL (140-400) Neutrophils (%) (Auto) 38 % (31-73) Lymphocytes (%) (Auto) 47 % (24-48) Monocytes (%) (Auto) 10 % (0-9) Eosinophils (%) (Auto) 4 % (0-3) Basophils (%) (Auto) 1 % (0-3) Neutrophils # (Auto) 1.8 x10^3/uL (1.8-7.7) Lymphocytes # (Auto) 2.2 x10^3/uL (1.0-4.8) Monocytes # (Auto) 0.5 x10^3/uL (0.0-1.1) Eosinophils # (Auto) 0.2 x10^3/uL (0.0-0.7) Basophils # (Auto) 0.0 x10^3/uL (0.0-0.2) Sodium Level 138 mmol/L (136-145) Potassium Level 3.7 mmol/L (3.5-5.1) Chloride Level 105 mmol/L (98-107) Carbon Dioxide Level 24 mmol/L (21-32) Anion Gap 9 (6-14) Blood Urea Nitrogen 7 mg/dL (7-20) Creatinine 0.6 mg/dL (0.6-1.0) Estimated GFR (Cockcroft-Gault) 129.1 BUN/Creatinine Ratio 12 (6-20) Glucose Level 88 mg/dL (70-99) Calcium Level 8.1 mg/dL (8.5-10.1) Phosphorus Level 3.0 mg/dL (2.6-4.7) Magnesium Level 1.7 mg/dL (1.8-2.4) Total Bilirubin 0.5 mg/dL (0.2-1.0) Aspartate Amino Transf (AST/SGOT) 11 U/L (15-37) Alanine Aminotransferase (ALT/SGPT) 16 U/L (14-59) Alkaline Phosphatase 55 U/L (46-116) Total Protein 6.7 g/dL (6.4-8.2) Albumin 3.2 g/dL (3.4-5.0) Albumin/Globulin Ratio 0.9 (1.0-1.7) Medications Current Medications Morphine Sulfate (Morphine Sulfate) 2 mg 1X ONCE IVP Last administered on 06/02/21at 06:26; Start 06/02/21 at 06:30; Stop 06/02/21 at 06:31; Status DC Lorazepam (Ativan Inj) 1 mg 1X ONCE IVP Last administered on 06/02/21at 08:39; Start 06/02/21 at 08:30; Stop 06/02/21 at 08:31; Status DC Ceftriaxone Sodium (Rocephin) 1 gm 1X ONCE IVP Last administered on 06/02/21at 08:39; Start 06/02/21 at 08:30; Stop 06/02/21 at 08:31; Status DC Sodium Chloride 1,000 ml @ 1,000 mls/hr 1X ONCE IV Last administered on 06/02/21at 08:39; Start 06/02/21 at 08:30; Stop 06/02/21 at 09:29; Status DC Morphine Sulfate (Morphine Sulfate) 2 mg PRN Q4HRS PRN IVP MODERATE TO SEVERE PAIN Last administered on 06/03/21at 11:45; Start 06/02/21 at 13:30; Stop 06/03/21 at 11:47; Status DC Ceftriaxone Sodium (Rocephin) 1 gm Q24H IVP Last administered on 06/03/21at 07:14; Start 06/03/21 at 09:00 Sennosides (Senna) 17.2 mg PRN BID PRN PO CONSTIPATION; Start 06/02/21 at 14:15 Docusate Sodium (Colace) 100 mg PRN DAILY PRN PO HARD STOOLS; Start 06/02/21 at 14:15 Ondansetron HCl (Zofran) 4 mg PRN Q6HRS PRN IVP NAUSEA/VOMITING, 1st CHOICE; Start 06/02/21 at 14:15 Dextrose (Dextrose 50%-Water Syringe) 12.5 gm PRN Q15MIN PRN IV SEE COMMENTS; Start 06/02/21 at 14:15 Sodium Chloride 1,000 ml @ 100 mls/hr Q10H IV Last administered on 06/03/21at 11:41; Start 06/02/21 at 14:15 Acetaminophen (Tylenol) 650 mg PRN Q4HRS PRN PO TEMP OVER 100.4F OR MILD PAIN; Start 06/02/21 at 14:15 Lorazepam (Ativan) 0.5 mg PRN Q6HRS PRN PO ANXIETY / AGITATION Last administered on 06/03/21at 11:45; Start 06/02/21 at 14:15 Lorazepam (Ativan Inj) 0.25 mg PRN Q4HRS PRN IV ANXIETY / AGITATION; Start 06/02/21 at 14:15 Oxycodone/ Acetaminophen (Percocet 5/325) 1 tab PRN Q4HRS PRN PO MILD PAIN, 1ST CHOICE; Start 06/02/21 at 14:15 Oxycodone/ Acetaminophen (Percocet 5/325) 2 tab PRN Q4HRS PRN PO MODERATE PAIN, SEVERE PAIN Last administered on 06/02/21at 19:58; Start 06/02/21 at 14:15 Morphine Sulfate (Morphine Sulfate) 1 mg PRN Q1HR PRN IV PAIN; Start 06/02/21 at 14:15 Morphine Sulfate (Morphine Sulfate) 2 mg PRN Q2HR PRN IVP SEVERE PAIN 7-10; Start 06/02/21 at 14:15; Stop 06/03/21 at 14:14 Prochlorperazine Edisylate (Compazine) 10 mg PRN Q6HRS PRN IV NAUSEA/VOMITING, 2nd CHOICE; Start 06/02/21 at 14:15 Diphenhydramine HCl (Benadryl) 25 mg PRN Q6HRS PRN IVP ITCHING Last administered on 06/03/21at 07:21; Start 06/02/21 at 14:15 Diphenhydramine HCl (Benadryl) 25 mg PRN Q6HRS PRN PO ITCHING Last administered on 06/02/21at 22:10; Start 06/02/21 at 14:15 Diphenhydramine HCl (Benadryl) 25 mg PRN QHS PRN PO INSOMNIA, 1st CHOICE; Start 06/02/21 at 14:15 Zolpidem Tartrate (Ambien) 2.5 mg PRN QHS PRN PO INSOMNIA, 2nd CHOICE; Start 06/02/21 at 14:15 Magnesium Sulfate 50 ml @ 25 mls/hr 1X ONCE IV Last administered on 06/03/21at 11:37; Start 06/03/21 at 11:00; Stop 06/03/21 at 12:59 Magnesium Citrate (Citroma) 296 ml 1X ONCE PO Last administered on 06/03/21at 11:34; Start 06/03/21 at 11:30; Stop 06/03/21 at 11:31; Status DC Magnesium Citrate (Citroma) 296 ml PRN 1X PRN PO CONSTIPATION; Start 06/03/21 at 11:30 Vitals/I & O Vital Sign - Last 24 Hours 06/02/21 06/02/21 06/02/21 06/02/21 13:43 14:15 15:00 19:00 Temp 97.6 98.6 97.6 98.6 Pulse 79 76 Resp 20 18 18 18 B/P (MAP) 137/84 (101) 161/92 (115) Pulse Ox 96 98 O2 Delivery Room Air Room Air Room Air Room Air 06/02/21 06/02/21 06/02/21 06/02/21 19:58 20:30 22:10 22:45 Resp 20 20 20 20 O2 Delivery Room Air Room Air Room Air Room Air 06/02/21 06/03/21 06/03/21 06/03/21 23:15 02:21 02:55 03:19 Temp 97.6 98.1 97.6 98.1 Pulse 70 71 Resp 18 20 20 18 B/P (MAP) 181/112 (135) 123/75 (91) Pulse Ox 97 97 O2 Delivery Room Air Room Air Room Air Room Air 06/03/21 06/03/21 06/03/21 06/03/21 07:00 07:10 11:00 11:45 Temp 98.3 98.5 98.3 98.5 Pulse 81 64 Resp 18 20 18 2 B/P (MAP) 163/103 (123) 126/65 (85) Pulse Ox 96 97 O2 Delivery Room Air Room Air Room Air Intake and Output 06/02/21 06/02/21 06/03/21 15:00 23:00 07:00 Intake Total 1000 ml 120 ml 660 ml Balance 1000 ml 120 ml 660 ml ALMA GARCIA Jun 03, 2021 12:48
[2021-06-03 15:00] VITALS: BP 121/72
[2021-06-03 19:00] VITALS: BP 177/98
[2021-06-03] MEDS: LACTOBACILLUS RHAMNOSUS GG 1 CAPSULE. PO SCH (20:10)
[2021-06-03 23:02] VITALS: BP 174/109
[2021-06-04 03:14] VITALS: BP 153/62
[2021-06-04] MEDS: IV NORMAL SALINE 1000ML BAG 1,000 ML IV SCH (06:15)
[2021-06-04] MEDS: MORPHINE SULFATE 2 MG/ML INJ. IVP PRN ×2 (06:15→10:40)
[2021-06-04 07:00] VITALS: BP 174/94
--- NOTE | 2021-06-04 09:42 | PDOC ---
[employer] PROGRESS NOTE Date of Service DOS: DATE: 06/04/21 TIME: 09:42 Chief Complaint Chief Complaint Hematuria -given her pain likely is hemorrhagic cystitis from UTI. We will follow up urine cultures antibiotics. Incidental finding of right lower lobe pulmonary nodules less than 6 mm, follow- up of CT in about 12 months can be done as an outpatient Suprapubic pain Constipation -we will give him magnesium citrate. History of Present Illness History of Present Illness 46 year old female presents to the ER with hematuria and left-sided flank pain. Suprapubic pain that started approximately 2 days ago. Patient is visiting family from [place]. Patient states that she was seen in the ER yesterday and was sent to this ER stating that they did not equipment to evaluate her yesterday. Patient states that the bleeding initially started spotting but currently has full bright red blood. Patient has not had symptoms like this previously. Denies any fevers or chills. Denies any nausea or vomiting. 06/03: CT abdomen pelvis with no obstructive uropathy or stones. She still notes she is having "thick blood". Urine culture pending she has been constipated has not had a bowel movement in 8 days. 06/04: Urine polymicrobial Vitals/I&O Vitals/I&O: Vital Signs Date Time Temp Pulse Resp B/P (MAP) Pulse Ox O2 Delivery O2 Flow Rate FiO2 06/04/21 07:00 98.0 79 18 174/94 (120) 98 Room Air 98.0 I & O 06/03/21 06/03/21 06/04/21 14:59 22:59 06:59 Intake Total 300 ml 600 ml Output Total 200 ml Balance 100 ml 600 ml Physical Exam General: Alert, Oriented X3, Cooperative, moderate distress Heart: Regular rate, Normal S1, Normal S2 Lungs: Clear Abdomen: Normal bowel sounds, Other (Left lower quadrant and suprapubic pain on shallow palpation) Extremities: No clubbing, No cyanosis Skin: No rashes, No breakdown Assessment and Plan Assessmemt and Plan Problems Medical Problems: (1) Hematuria Status: Acute Comment Review of Relevant I have reviewed the following items emily (where applicable) has been applied. Medications: Current Medications Medications (Trade) Dose Ordered Sig/Aimee Route PRN Reason Start Time Stop Time Status Last Admin Dose Admin Magnesium Sulfate 50 ml @ 25 mls/hr 1X ONCE IV 06/03/21 11:00 06/03/21 12:59 DC 06/03/21 11:37 Magnesium Citrate (Citroma) 296 ml 1X ONCE PO 06/03/21 11:30 06/03/21 11:31 DC 06/03/21 11:34 Morphine Sulfate (Morphine Sulfate) 4 mg PRN Q2HR PRN IVP SEVERE PAIN 7-10 06/03/21 13:00 06/04/21 12:59 06/04/21 06:15 Lactobacillus Rhamnosus (Culturelle) 1 cap BID PO 06/03/21 21:00 06/03/21 20:10 Justifications for Admission Other Justification Hematuria TYRON FRITZ MD Jun 04, 2021 09:42
[2021-06-04] MEDS ORDERED: CIPROFLOXACIN HCL 250 MG TABLET. PO ONE (09:45)
[2021-06-04 09:53] LABS: CALCIUM 8.7 mg/dL (8.5-10.1); CREATININE 0.7 mg/dL (0.6-1.0); GFR 108.1; MAGNESIUM 2.3 mg/dL (1.8-2.4); POTASSIUM 4.3 mmol/L (3.5-5.1)
[2021-06-04] MEDS: cefTRIAXone IV Push 1 GM VIAL. IVP SCH (10:25)
[2021-06-04] MEDS: LACTOBACILLUS RHAMNOSUS GG 1 CAPSULE. PO SCH (10:25)
[2021-06-04 11:00] VITALS: BP 173/99
[2021-06-04] MEDS ORDERED: OXYC1TAB15 PO (11:04)
[2021-06-04] MEDS ORDERED: CIPR500T2 PO (11:04)
[2021-06-04 11:41] LABS: BASO % 0 % (0-3); EOS % 1 % (0-3); HEMATOCRIT 38.9 % (36.0-47.0); HEMOGLOBIN 12.2 g/dL (12.0-15.5); LYMPH # 1.5 x10^3/uL (1.0-4.8); LYMPH % 27 % (24-48); MEAN CORPUSCULAR HEMOGLOBIN 25 pg (25-35); MEAN CORPUSCULAR HGB CONC 31 g/dL (31-37); MEAN CORPUSCULAR VOLUME 80 fL (79-100); MONO # 0.5 x10^3/uL (0.0-1.1); MONO % 8 % (0-9); NEUT # 3.5 x10^3/uL (1.8-7.7); NEUT % 63 % (31-73); PLATELET COUNT 334 x10^3/uL (140-400); RED CELL DISTRIBUTION WIDTH 16.6 % (11.5-14.5); WHITE BLOOD COUNT 5.6 x10^3/uL (4.0-11.0)
--- NOTE | 2021-06-04 13:05 | PN ---
PROGRESS NOTES Date of Service DATE: 06/04/21 TIME: 13:02 Subjective Subjective Pt reports hematuria improving somewhat less pain Objective Objective Vital Signs Date Time Temp Pulse Resp B/P (MAP) Pulse Ox O2 Delivery O2 Flow Rate FiO2 06/04/21 11:10 Room Air 06/04/21 11:00 97.8 71 22 173/99 (123) 100 97.8 Intake and Output 06/04/21 07:00 Intake Total 900 ml Output Total 200 ml Balance 700 ml Intake Oral 900 ml Output Urine Total 200 ml # Voids 3 Physical Exam Physical Exam NAD nonlabored respirations abd nt Diagnosis PROBLEM LIST Problems Medical Problems: (1) Hematuria Status: Acute Assessment Assessment Problems Medical Problems: (1) Hematuria Status: Acute Plan Plan of Care Gross Hematuria Emptying well. No clots noted. UA obscured by blood. Most likely due to UTI. CT a/p unremarkable. H/H stable Continue empiric abx, IVF. F/u urine culture--3+ bacteria possible contamination. Finish course of abx. Also recommend pt f/u with urologist in [place] when she returns to have cystoscopy outpatient. Again reinforced this and she voices understanding. Ok with d/c. Please call with questions. Comment Review of Relevant I have reviewed the following items emily (where applicable) has been applied. Labs Laboratory Tests Test 06/03/21 06:35 06/04/21 09:15 06/04/21 11:10 White Blood Count 4.7 x10^3/uL (4.0-11.0) 5.6 x10^3/uL (4.0-11.0) Red Blood Count 4.53 x10^6/uL (3.50-5.40) 4.90 x10^6/uL (3.50-5.40) Hemoglobin 11.5 g/dL (12.0-15.5) 12.2 g/dL (12.0-15.5) Hematocrit 36.3 % (36.0-47.0) 38.9 % (36.0-47.0) Mean Corpuscular Volume 80 fL (79-100) 80 fL (79-100) Mean Corpuscular Hemoglobin 25 pg (25-35) 25 pg (25-35) Mean Corpuscular Hemoglobin Concent 32 g/dL (31-37) 31 g/dL (31-37) Red Cell Distribution Width 16.7 % (11.5-14.5) 16.6 % (11.5-14.5) Platelet Count 290 x10^3/uL (140-400) 334 x10^3/uL (140-400) Neutrophils (%) (Auto) 38 % (31-73) 63 % (31-73) Lymphocytes (%) (Auto) 47 % (24-48) 27 % (24-48) Monocytes (%) (Auto) 10 % (0-9) 8 % (0-9) Eosinophils (%) (Auto) 4 % (0-3) 1 % (0-3) Basophils (%) (Auto) 1 % (0-3) 0 % (0-3) Neutrophils # (Auto) 1.8 x10^3/uL (1.8-7.7) 3.5 x10^3/uL (1.8-7.7) Lymphocytes # (Auto) 2.2 x10^3/uL (1.0-4.8) 1.5 x10^3/uL (1.0-4.8) Monocytes # (Auto) 0.5 x10^3/uL (0.0-1.1) 0.5 x10^3/uL (0.0-1.1) Eosinophils # (Auto) 0.2 x10^3/uL (0.0-0.7) 0.0 x10^3/uL (0.0-0.7) Basophils # (Auto) 0.0 x10^3/uL (0.0-0.2) 0.0 x10^3/uL (0.0-0.2) Sodium Level 138 mmol/L (136-145) 135 mmol/L (136-145) Potassium Level 3.7 mmol/L (3.5-5.1) 4.3 mmol/L (3.5-5.1) Chloride Level 105 mmol/L (98-107) 104 mmol/L (98-107) Carbon Dioxide Level 24 mmol/L (21-32) 22 mmol/L (21-32) Anion Gap 9 (6-14) 9 (6-14) Blood Urea Nitrogen 7 mg/dL (7-20) 5 mg/dL (7-20) Creatinine 0.6 mg/dL (0.6-1.0) 0.7 mg/dL (0.6-1.0) Estimated GFR (Cockcroft-Gault) 129.1 108.1 BUN/Creatinine Ratio 12 (6-20) Glucose Level 88 mg/dL (70-99) 124 mg/dL (70-99) Calcium Level 8.1 mg/dL (8.5-10.1) 8.7 mg/dL (8.5-10.1) Phosphorus Level 3.0 mg/dL (2.6-4.7) Magnesium Level 1.7 mg/dL (1.8-2.4) 2.3 mg/dL (1.8-2.4) Total Bilirubin 0.5 mg/dL (0.2-1.0) Aspartate Amino Transf (AST/SGOT) 11 U/L (15-37) Alanine Aminotransferase (ALT/SGPT) 16 U/L (14-59) Alkaline Phosphatase 55 U/L (46-116) Total Protein 6.7 g/dL (6.4-8.2) Albumin 3.2 g/dL (3.4-5.0) Albumin/Globulin Ratio 0.9 (1.0-1.7) Laboratory Tests Test 06/04/21 09:15 06/04/21 11:10 Sodium Level 135 mmol/L (136-145) Potassium Level 4.3 mmol/L (3.5-5.1) Chloride Level 104 mmol/L (98-107) Carbon Dioxide Level 22 mmol/L (21-32) Anion Gap 9 (6-14) Blood Urea Nitrogen 5 mg/dL (7-20) Creatinine 0.7 mg/dL (0.6-1.0) Estimated GFR (Cockcroft-Gault) 108.1 Glucose Level 124 mg/dL (70-99) Calcium Level 8.7 mg/dL (8.5-10.1) Magnesium Level 2.3 mg/dL (1.8-2.4) White Blood Count 5.6 x10^3/uL (4.0-11.0) Red Blood Count 4.90 x10^6/uL (3.50-5.40) Hemoglobin 12.2 g/dL (12.0-15.5) Hematocrit 38.9 % (36.0-47.0) Mean Corpuscular Volume 80 fL (79-100) Mean Corpuscular Hemoglobin 25 pg (25-35) Mean Corpuscular Hemoglobin Concent 31 g/dL (31-37) Red Cell Distribution Width 16.6 % (11.5-14.5) Platelet Count 334 x10^3/uL (140-400) Neutrophils (%) (Auto) 63 % (31-73) Lymphocytes (%) (Auto) 27 % (24-48) Monocytes (%) (Auto) 8 % (0-9) Eosinophils (%) (Auto) 1 % (0-3) Basophils (%) (Auto) 0 % (0-3) Neutrophils # (Auto) 3.5 x10^3/uL (1.8-7.7) Lymphocytes # (Auto) 1.5 x10^3/uL (1.0-4.8) Monocytes # (Auto) 0.5 x10^3/uL (0.0-1.1) Eosinophils # (Auto) 0.0 x10^3/uL (0.0-0.7) Basophils # (Auto) 0.0 x10^3/uL (0.0-0.2) Microbiology 06/02/21 Urine Culture - Final, Complete Medications Current Medications Morphine Sulfate (Morphine Sulfate) 2 mg 1X ONCE IVP Last administered on 06/02/21at 06:26; Start 06/02/21 at 06:30; Stop 06/02/21 at 06:31; Status DC Lorazepam (Ativan Inj) 1 mg 1X ONCE IVP Last administered on 06/02/21at 08:39; Start 06/02/21 at 08:30; Stop 06/02/21 at 08:31; Status DC Ceftriaxone Sodium (Rocephin) 1 gm 1X ONCE IVP Last administered on 06/02/21at 08:39; Start 06/02/21 at 08:30; Stop 06/02/21 at 08:31; Status DC Sodium Chloride 1,000 ml @ 1,000 mls/hr 1X ONCE IV Last administered on 06/02/21at 08:39; Start 06/02/21 at 08:30; Stop 06/02/21 at 09:29; Status DC Morphine Sulfate (Morphine Sulfate) 2 mg PRN Q4HRS PRN IVP MODERATE TO SEVERE PAIN Last administered on 06/03/21at 11:45; Start 06/02/21 at 13:30; Stop 06/03/21 at 11:47; Status DC Ceftriaxone Sodium (Rocephin) 1 gm Q24H IVP Last administered on 06/04/21at 10:25; Start 06/03/21 at 09:00 Sennosides (Senna) 17.2 mg PRN BID PRN PO CONSTIPATION; Start 06/02/21 at 14:15 Docusate Sodium (Colace) 100 mg PRN DAILY PRN PO HARD STOOLS; Start 06/02/21 at 14:15 Ondansetron HCl (Zofran) 4 mg PRN Q6HRS PRN IVP NAUSEA/VOMITING, 1st CHOICE; Start 06/02/21 at 14:15 Dextrose (Dextrose 50%-Water Syringe) 12.5 gm PRN Q15MIN PRN IV SEE COMMENTS; Start 06/02/21 at 14:15 Sodium Chloride 1,000 ml @ 100 mls/hr Q10H IV Last administered on 06/03/21at 11:41; Start 06/02/21 at 14:15 Acetaminophen (Tylenol) 650 mg PRN Q4HRS PRN PO TEMP OVER 100.4F OR MILD PAIN; Start 06/02/21 at 14:15 Lorazepam (Ativan) 0.5 mg PRN Q6HRS PRN PO ANXIETY / AGITATION Last administered on 06/03/21at 22:26; Start 06/02/21 at 14:15 Lorazepam (Ativan Inj) 0.25 mg PRN Q4HRS PRN IV ANXIETY / AGITATION; Start 06/02/21 at 14:15 Oxycodone/ Acetaminophen (Percocet 5/325) 1 tab PRN Q4HRS PRN PO MILD PAIN, 1ST CHOICE; Start 06/02/21 at 14:15 Oxycodone/ Acetaminophen (Percocet 5/325) 2 tab PRN Q4HRS PRN PO MODERATE PAIN, SEVERE PAIN Last administered on 06/02/21at 19:58; Start 06/02/21 at 14:15 Morphine Sulfate (Morphine Sulfate) 1 mg PRN Q1HR PRN IV PAIN; Start 06/02/21 at 14:15 Morphine Sulfate (Morphine Sulfate) 2 mg PRN Q2HR PRN IVP SEVERE PAIN 7-10; Start 06/02/21 at 14:15; Stop 06/03/21 at 12:54; Status DC Prochlorperazine Edisylate (Compazine) 10 mg PRN Q6HRS PRN IV NAUSEA/VOMITING, 2nd CHOICE Last administered on 06/03/21at 22:31; Start 06/02/21 at 14:15 Diphenhydramine HCl (Benadryl) 25 mg PRN Q6HRS PRN IVP ITCHING Last administered on 06/03/21at 07:21; Start 06/02/21 at 14:15 Diphenhydramine HCl (Benadryl) 25 mg PRN Q6HRS PRN PO ITCHING Last administered on 06/02/21at 22:10; Start 06/02/21 at 14:15 Diphenhydramine HCl (Benadryl) 25 mg PRN QHS PRN PO INSOMNIA, 1st CHOICE; Start 06/02/21 at 14:15 Zolpidem Tartrate (Ambien) 2.5 mg PRN QHS PRN PO INSOMNIA, 2nd CHOICE; Start 06/02/21 at 14:15 Magnesium Sulfate 50 ml @ 25 mls/hr 1X ONCE IV Last administered on 06/03/21at 11:37; Start 06/03/21 at 11:00; Stop 06/03/21 at 12:59; Status DC Magnesium Citrate (Citroma) 296 ml 1X ONCE PO Last administered on 06/03/21at 11:34; Start 06/03/21 at 11:30; Stop 06/03/21 at 11:31; Status DC Magnesium Citrate (Citroma) 296 ml PRN 1X PRN PO CONSTIPATION; Start 06/03/21 at 11:30 Morphine Sulfate (Morphine Sulfate) 4 mg PRN Q2HR PRN IVP SEVERE PAIN 7-10 Last administered on 06/04/21at 10:40; Start 06/03/21 at 13:00; Stop 06/04/21 at 12:59; Status DC Lactobacillus Rhamnosus (Culturelle) 1 cap BID PO Last administered on 06/04/21at 10:25; Start 06/03/21 at 21:00 Ciprofloxacin (Cipro) 500 mg 1X ONCE PO Last administered on 06/04/21at 10:38; Start 06/04/21 at 09:45; Stop 06/04/21 at 09:47; Status DC Active Scripts Active Ciprofloxacin Hcl 500 Mg Tablet 1 Tab PO BID 5 Days Percocet 5-325 Mg Tablet (Oxycodone/Acetaminophen) 1 Each Tablet 1 Tab PO PRN Q8HRS PRN 6 Days Vitals/I & O Vital Sign - Last 24 Hours 06/03/21 06/03/21 06/03/21 06/03/21 15:00 17:00 19:00 20:13 Temp 98.1 97.8 98.1 97.8 Pulse 72 80 Resp 18 14 20 B/P (MAP) 121/72 (88) 177/98 (124) Pulse Ox 99 99 98 O2 Delivery Room Air Room Air Room Air 06/03/21 06/03/21 06/03/21 06/03/21 20:46 22:31 23:01 23:02 Temp 98.0 98.0 Pulse 98 Resp 20 22 20 14 B/P (MAP) 174/109 (130) Pulse Ox 93 O2 Delivery Room Air Room Air Room Air 06/04/21 06/04/21 06/04/21 06/04/21 03:14 06:15 07:00 10:40 Temp 98.1 98.0 98.1 98.0 Pulse 79 79 Resp 14 20 18 B/P (MAP) 153/62 (92) 174/94 (120) Pulse Ox 98 98 O2 Delivery Room Air Room Air Room Air Room Air 06/04/21 06/04/21 11:00 11:10 Temp 97.8 97.8 Pulse 71 Resp 22 B/P (MAP) 173/99 (123) Pulse Ox 100 O2 Delivery Room Air Room Air Intake and Output 06/03/21 06/03/21 06/04/21 15:00 23:00 07:00 Intake Total 300 ml 600 ml Output Total 200 ml Balance 100 ml 600 ml ALMA GARCIA Jun 04, 2021 13:05
--- NOTE | 2021-06-04 13:59 | PDOC3 ---
Discharge Summary Visit Information Date of Admission: Jun 02, 2021 Date of Discharge: Jun 04, 2021 Admitting Diagnosis: INtractable abdominal pain, hematuria Final Diagnosis Problems Medical Problems: (1) Hematuria Status: Acute Brief Hospital Course Allergies Allergies Coded Allergies Type Severity Reaction Last Updated Verified azithromycin Allergy Intermediate 06/02/21 Yes ketorolac Allergy Intermediate 06/02/21 Yes Vital Signs Vital Signs Date Time Temp Pulse Resp B/P (MAP) Pulse Ox O2 Delivery O2 Flow Rate FiO2 06/04/21 11:10 Room Air 06/04/21 11:00 97.8 71 22 173/99 (123) 100 97.8 Lab Results Laboratory Tests Test 06/03/21 06:35 06/04/21 09:15 06/04/21 11:10 White Blood Count 4.7 x10^3/uL (4.0-11.0) 5.6 x10^3/uL (4.0-11.0) Red Blood Count 4.53 x10^6/uL (3.50-5.40) 4.90 x10^6/uL (3.50-5.40) Hemoglobin 11.5 g/dL (12.0-15.5) 12.2 g/dL (12.0-15.5) Hematocrit 36.3 % (36.0-47.0) 38.9 % (36.0-47.0) Mean Corpuscular Volume 80 fL (79-100) 80 fL (79-100) Mean Corpuscular Hemoglobin 25 pg (25-35) 25 pg (25-35) Mean Corpuscular Hemoglobin Concent 32 g/dL (31-37) 31 g/dL (31-37) Red Cell Distribution Width 16.7 % (11.5-14.5) 16.6 % (11.5-14.5) Platelet Count 290 x10^3/uL (140-400) 334 x10^3/uL (140-400) Neutrophils (%) (Auto) 38 % (31-73) 63 % (31-73) Lymphocytes (%) (Auto) 47 % (24-48) 27 % (24-48) Monocytes (%) (Auto) 10 % (0-9) 8 % (0-9) Eosinophils (%) (Auto) 4 % (0-3) 1 % (0-3) Basophils (%) (Auto) 1 % (0-3) 0 % (0-3) Neutrophils # (Auto) 1.8 x10^3/uL (1.8-7.7) 3.5 x10^3/uL (1.8-7.7) Lymphocytes # (Auto) 2.2 x10^3/uL (1.0-4.8) 1.5 x10^3/uL (1.0-4.8) Monocytes # (Auto) 0.5 x10^3/uL (0.0-1.1) 0.5 x10^3/uL (0.0-1.1) Eosinophils # (Auto) 0.2 x10^3/uL (0.0-0.7) 0.0 x10^3/uL (0.0-0.7) Basophils # (Auto) 0.0 x10^3/uL (0.0-0.2) 0.0 x10^3/uL (0.0-0.2) Sodium Level 138 mmol/L (136-145) 135 mmol/L (136-145) Potassium Level 3.7 mmol/L (3.5-5.1) 4.3 mmol/L (3.5-5.1) Chloride Level 105 mmol/L (98-107) 104 mmol/L (98-107) Carbon Dioxide Level 24 mmol/L (21-32) 22 mmol/L (21-32) Anion Gap 9 (6-14) 9 (6-14) Blood Urea Nitrogen 7 mg/dL (7-20) 5 mg/dL (7-20) Creatinine 0.6 mg/dL (0.6-1.0) 0.7 mg/dL (0.6-1.0) Estimated GFR (Cockcroft-Gault) 129.1 108.1 BUN/Creatinine Ratio 12 (6-20) Glucose Level 88 mg/dL (70-99) 124 mg/dL (70-99) Calcium Level 8.1 mg/dL (8.5-10.1) 8.7 mg/dL (8.5-10.1) Phosphorus Level 3.0 mg/dL (2.6-4.7) Magnesium Level 1.7 mg/dL (1.8-2.4) 2.3 mg/dL (1.8-2.4) Total Bilirubin 0.5 mg/dL (0.2-1.0) Aspartate Amino Transf (AST/SGOT) 11 U/L (15-37) Alanine Aminotransferase (ALT/SGPT) 16 U/L (14-59) Alkaline Phosphatase 55 U/L (46-116) Total Protein 6.7 g/dL (6.4-8.2) Albumin 3.2 g/dL (3.4-5.0) Albumin/Globulin Ratio 0.9 (1.0-1.7) Laboratory Tests Test 06/04/21 09:15 06/04/21 11:10 Sodium Level 135 mmol/L (136-145) Potassium Level 4.3 mmol/L (3.5-5.1) Chloride Level 104 mmol/L (98-107) Carbon Dioxide Level 22 mmol/L (21-32) Anion Gap 9 (6-14) Blood Urea Nitrogen 5 mg/dL (7-20) Creatinine 0.7 mg/dL (0.6-1.0) Estimated GFR (Cockcroft-Gault) 108.1 Glucose Level 124 mg/dL (70-99) Calcium Level 8.7 mg/dL (8.5-10.1) Magnesium Level 2.3 mg/dL (1.8-2.4) White Blood Count 5.6 x10^3/uL (4.0-11.0) Red Blood Count 4.90 x10^6/uL (3.50-5.40) Hemoglobin 12.2 g/dL (12.0-15.5) Hematocrit 38.9 % (36.0-47.0) Mean Corpuscular Volume 80 fL (79-100) Mean Corpuscular Hemoglobin 25 pg (25-35) Mean Corpuscular Hemoglobin Concent 31 g/dL (31-37) Red Cell Distribution Width 16.6 % (11.5-14.5) Platelet Count 334 x10^3/uL (140-400) Neutrophils (%) (Auto) 63 % (31-73) Lymphocytes (%) (Auto) 27 % (24-48) Monocytes (%) (Auto) 8 % (0-9) Eosinophils (%) (Auto) 1 % (0-3) Basophils (%) (Auto) 0 % (0-3) Neutrophils # (Auto) 3.5 x10^3/uL (1.8-7.7) Lymphocytes # (Auto) 1.5 x10^3/uL (1.0-4.8) Monocytes # (Auto) 0.5 x10^3/uL (0.0-1.1) Eosinophils # (Auto) 0.0 x10^3/uL (0.0-0.7) Basophils # (Auto) 0.0 x10^3/uL (0.0-0.2) Brief Hospital Course 46 year old female presents to the ER with hematuria and left-sided flank pain. Suprapubic pain that started approximately 2 days ago. Patient is visiting family from [place]. Patient states that she was seen in the ER yesterday and was sent to this ER stating that they did not equipment to evaluate her yesterday. Patient states that the bleeding initially started spotting but currently has full bright red blood. Patient has not had symptoms like this previously. Denies any fevers or chills. Denies any nausea or vomiting. 06/03: CT abdomen pelvis with no obstructive uropathy or stones. She still notes she is having "thick blood". Urine culture pending she has been constipated has not had a bowel movement in 8 days. 06/04: Urine polymicrobial. Pain is improved less hematuria. She notes she does not have any vaginal bleeding at all from her urethra. Concerned about the culture results. I let her know polymicrobial's this is likely potentially contaminated sample and she does need urology follow-up outpatient she is leaving for [place] tomorrow and 7 days of Cipro. Consults: Urology Problem list: Hematuria -given her pain likely is hemorrhagic cystitis from UTI. empiric cipro 7 days Incidental finding of right lower lobe pulmonary nodules less than 6 mm, follow- up of CT in about 12 months can be done as an outpatient Suprapubic pain Constipation -we will give him magnesium citrate. Plan: --3+ bacteria possible contamination. Finish course of abx. Also recommend pt f/u with urologist in [place] when she returns to have cystoscop y outpatient. Again reinforced this and she voices understanding. Greater than 30 minutes spent on discharge home with self-care Discharge Information Condition at Discharge: Improved Follow Up: Weeks (1) Disposition/Orders: D/C to Home Scheduled Ciprofloxacin Hcl (Ciprofloxacin Hcl) 500 Mg Tablet, 1 TAB PO BID for UTI for 5 Days, #10 Prescribed by: TYRON FRITZ MD on 06/04/21 1104 Scheduled PRN Oxycodone/Apap 5-325 (Percocet 5-325 Mg Tablet ) 1 Each Tablet, 1 TAB PO PRN Q8HRS PRN for MILD PAIN, 1ST CHOICE for 6 Days, #18 Prescribed by: TYRON FRITZ MD on 06/04/21 1106 Justicifation of Admission Dx: Justifications for Admission: Justification of Admission Dx: Yes TYRON FRITZ MD Jun 04, 2021 13:59
== END 2021-06-04 15:45 | disposition home or self-care (01) | DRG 690 ==
LOC: ER 05:04 → UNDOADMIN 08:34 → 4 NORTH 08:34 → ED HOLD 08:34 → 4 NORTH 10:32
PROVIDERS: ADMIT Internal Medicine; ATTEND Internal Medicine
DX: N30.01 Acute cystitis with hematuria (principal); K59.00 Constipation, unspecified; Z86.19 Personal history of other infectious and parasitic diseases; Z87.891 Personal history of nicotine dependence; Z88.8 Allergy status to other drugs, medicaments and biological substances; R91.8 Other nonspecific abnormal finding of lung field; G47.00 Insomnia, unspecified; F41.9 Anxiety disorder, unspecified
CPT/HCPCS: 36415; 74176; 80048; 80053; 81001; 83735; 84100; 85025; 87086; 96361; 96374; 96375; 99406; J0696; J0780; J1200; J2060; J2270; J3475; J7030; 99285-25; G0378; Q0163